=== PATIENT | female | born 1985 | race Caucasian/White ===

== ENCOUNTER 2019-08-20 15:22 | Inpatient (IN) | payer BC, MEDICAID ==
[~2019-08-20] VITALS: Ht 175.3 cm; Wt 104.3 kg
[2019-08-20] MEDS ORDERED: ONDANSETRON HCL 4MG/2ML INJ IV STA (17:33)
[2019-08-20] MEDS ORDERED: SODIUM CHLORIDE 0.9% 1,000 ML IV ONE (17:33)
[2019-08-20] MEDS ORDERED: HYDROMORPHONE HCL/PF 2MG/ML CPJ IV ONE (17:45)
[2019-08-20 18:34] LABS: BASOPHILS % 0.2 % (0.0-2.0); HEMATOCRIT. 35.5 % (36.0-48.0); LYMPHOCYTES % 20.7 % (20.0-50.0); MEAN CORPUSCULAR HEMOGLOBIN 29.6 pg (28.0-32.0); MEAN CORPUSCULAR VOLUME 87.3 fL (81.0-99.0); MONOCYTES % 7.8 % (2.0-8.0); NEUTROPHILS % 71.3 % (40.0-76.0); PLATELET 628 x1000/uL (130-400); RED BLOOD CELL COUNT 4.07 mill/uL (4.2-5.4); RED CELL DISTRIBUTION WIDTH 18.1 % (11.6-14.6)
[2019-08-20 18:35] LABS: CHLORIDE 101 mEq/L (98-107)
[2019-08-20 18:37] LABS: INR 1.1; PROTHROMBIN TIME 11.6 sec (9.6-11.0)
[2019-08-20 18:44] LABS: CREATINE KINASE 58 IU/L (26-192)
[2019-08-20] MEDS ORDERED: DIATR MEGLU/DIATRIZOATE SOLN 30ML ONE (19:55)
[2019-08-20 20:45] LABS: CLARITY URINE CLOUDY (CLEAR); COLOR URINE DARK YELLOW (YELLOW); KETONES URINE NEGATIVE (NEGATIVE); LEUKOCYTE ESTERASE URINE 2+ (NEGATIVE); NITRITE URINE NEGATIVE (NEGATIVE); OCCULT BLOOD URINE 3+ (NEGATIVE); PROTEIN URINE 2+ (NEGATIVE); SPECIFIC GRAVITY URINE 1.022 (1.005-1.030)
[2019-08-20] MEDS ORDERED: IOHEXOL-300 100 ML BOTTLE ONE (22:17)
[2019-08-20 22:41] VITALS: BP 114/81
[2019-08-20 23:05] VITALS: BP 114/81
[2019-08-21] MEDS ORDERED: HYDROMORPHONE HCL/PF 2MG/ML CPJ IV NR
[2019-08-21] MEDS: DEXT 5%/0.45% NACL 1000ML 1,000 ML IV SCH ×2 (02:51→13:30)
[2019-08-21] MEDS ORDERED: HYDR-3280 MT (03:14)
[2019-08-21] MEDS ORDERED: IBUP-2029 PO (03:16)
[2019-08-21] MEDS ORDERED: GABA-531 MT (03:16)
[2019-08-21] MEDS ORDERED: CAPE500T15 PO (03:19)
[2019-08-21] MEDS ORDERED: ONDA4TAB5 MT (03:19)
[2019-08-21 04:00] VITALS: BP 107/67
[2019-08-21] MEDS: ONDANSETRON HCL 4MG/2ML INJ IV PRN ×2 (06:06→21:24)
[2019-08-21] MEDS: HYDROMORPHONE HCL/PF 2MG/ML CPJ IV PRN ×4 (06:07→23:10)
[2019-08-21 08:00] VITALS: BP 126/76
[2019-08-21] MEDS: PANTOPRAZOLE SODIUM 40 MG/VIAL IV SCH (08:49)
[2019-08-21] MEDS: CAPECITABINE 500MG TABLET PO SCH ×2 (08:50→17:33)
[2019-08-21 12:00] VITALS: BP 121/63
[2019-08-21] MEDS: ENOXAPARIN 30MG/0.3ML SYR SUBCUT SCH ×2 (12:09→21:18)
[2019-08-21] MEDS: PIPERACILLIN/TAZOBACTAM 3.375 G in DEXT 5% WATER 100 ML IV SCH ×3 (13:27→23:50)
[2019-08-21] MEDS ORDERED: METOCLOPRAMIDE HCL 10MG/2ML VIAL IV SCH (14:30)
[2019-08-21 16:00] VITALS: BP 104/67
[2019-08-21] MEDS ORDERED: IPRATROPIUM/ALBUTEROL 0.5-3(2.5)MG/3ML NEB HHN PRN (16:00)
[2019-08-21] MEDS ORDERED: LORAZEPAM 2MG/ML CPJ IV PRN (16:00)
[2019-08-21] MEDS: DEXT 5%/0.9% NACL 1,000 ML IV SCH (16:00)
[2019-08-21] MEDS ORDERED: LACTULOSE 20G/30ML UDC PO PRN (16:00)
[2019-08-21] MEDS ORDERED: DIPHENHYDRAMINE 50MG/ML VIAL IV PRN (16:00)
[2019-08-21] MEDS ORDERED: CLONIDINE 0.1MG TABLET PO PRN (16:00)
[2019-08-21] MEDS: FLUCONAZOLE 100MG TABLET PO SCH (17:33)
[2019-08-21 20:00] VITALS: BP 108/65
[2019-08-22] VITALS: BP 117/70
[2019-08-22] MEDS: METOCLOPRAMIDE HCL 10MG/2ML VIAL IV PRN ×2 (02:05→11:27)
[2019-08-22 04:00] VITALS: BP 97/63
[2019-08-22] MEDS: HYDROMORPHONE HCL/PF 2MG/ML CPJ IV PRN ×4 (04:23→20:56)
[2019-08-22] MEDS: PIPERACILLIN/TAZOBACTAM 3.375 G in DEXT 5% WATER 100 ML IV SCH ×3 (06:31→18:05)
[2019-08-22] MEDS: PANTOPRAZOLE SODIUM 40 MG/VIAL IV SCH (09:03)
[2019-08-22] MEDS: CAPECITABINE 500MG TABLET PO SCH ×2 (09:03→18:04)
[2019-08-22] MEDS: ENOXAPARIN 30MG/0.3ML SYR SUBCUT SCH ×2 (09:04→20:55)
[2019-08-22] MEDS: FLUCONAZOLE 100MG TABLET PO SCH (09:04)
[2019-08-22] MEDS: DEXT 5%/0.9% NACL 1,000 ML IV SCH (11:30)
[2019-08-22 12:00] VITALS: BP 117/71
[2019-08-22 12:47] LABS: HCG SCREEN NEGATIVE
[2019-08-22 16:00] VITALS: BP 101/63
[2019-08-22] MEDS: METOCLOPRAMIDE HCL 10MG/2ML VIAL IV SCH (18:05)
[2019-08-22 20:00] VITALS: BP 120/80
[2019-08-22] MEDS ORDERED: ONDANSETRON INJ 8 MG in DEXTROSE 5% WATER 50 ML IV PRN (20:00)
[2019-08-22 20:07] LABS: EOSINOPHILS % 0.5 % (0.0-5.0); HEMATOCRIT. 37.3 % (36.0-48.0); HEMOGLOBIN. 12.6 g/dL (12.0-16.0); LYMPHOCYTES % 32.7 % (20.0-50.0); MEAN CORPUSCULAR HEMOGLOBIN 30.1 pg (28.0-32.0); MEAN CORPUSCULAR VOLUME 88.9 fL (81.0-99.0); MEAN PLATELET VOLUME 6.4 fl (7.4-10.4); MONOCYTES % 6.8 % (2.0-8.0); PLATELET 485 x1000/uL (130-400); RED CELL DISTRIBUTION WIDTH 18.5 % (11.6-14.6)
[2019-08-22 20:14] LABS: CHLORIDE 105 mEq/L (98-107)
[2019-08-22 20:21] LABS: LDL CHOLESTEROL 45 mg/dL (5-100)
[2019-08-22 20:22] LABS: HDL CHOLESTEROL 31 mg/dL (40-59)
[2019-08-22 20:24] LABS: T4 FREE 1.19 ng/dL (0.76-1.46)
[2019-08-23] VITALS: BP 118/68
[2019-08-23] MEDS: PIPERACILLIN/TAZOBACTAM 3.375 G in DEXT 5% WATER 100 ML IV SCH ×2 (00:07→05:00)
[2019-08-23] MEDS: METOCLOPRAMIDE HCL 10MG/2ML VIAL IV SCH ×4 (00:08→17:23)
[2019-08-23] MEDS: HYDROMORPHONE HCL/PF 2MG/ML CPJ IV PRN ×5 (00:56→17:24)
[2019-08-23 04:00] VITALS: BP 121/69
[2019-08-23 06:45] LABS: BASOPHILS % 0.3 % (0.0-2.0); HEMATOCRIT. 34.2 % (36.0-48.0); HEMOGLOBIN. 11.5 g/dL (12.0-16.0); LYMPHOCYTES % 39.1 % (20.0-50.0); MEAN CORPUSCULAR HEMOGLOBIN 29.7 pg (28.0-32.0); MEAN CORPUSCULAR VOLUME 88.1 fL (81.0-99.0); MEAN PLATELET VOLUME 6.1 fl (7.4-10.4); MONOCYTES % 8.7 % (2.0-8.0); NEUTROPHILS % 49.9 % (40.0-76.0); PLATELET 393 x1000/uL (130-400); RED BLOOD CELL COUNT 3.88 mill/uL (4.2-5.4); RED CELL DISTRIBUTION WIDTH 17.7 % (11.6-14.6)
[2019-08-23 06:52] LABS: CHLORIDE 107 mEq/L (98-107)
[2019-08-23] MEDS ORDERED: FAMOTIDINE 20MG/2ML VIAL IV SCH (09:00)
[2019-08-23] MEDS: FLUCONAZOLE 100MG TABLET PO SCH (09:15)
[2019-08-23] MEDS: CAPECITABINE 500MG TABLET PO SCH ×2 (09:16→17:23)
[2019-08-23] MEDS: ENOXAPARIN 30MG/0.3ML SYR SUBCUT SCH (09:16)
[2019-08-23] MEDS: GABAPENTIN 300MG CAPSULE PO SCH ×2 (11:21→17:23)
[2019-08-23] MEDS ORDERED: POTASSIUM CHLORIDE 20MEQ TABLET SR PO SCH (11:30)
[2019-08-23] MEDS ORDERED: HYDROCODONE/ACETAMINOPHEN 10/325MG TABLET PO PRN (13:00)
[2019-08-23] MEDS ORDERED: HYDROCODONE/ACETAMINOPHEN 10/325MG TABLET PO NR (13:30)
[2019-08-23 16:38] VITALS: BP 122/75
[2019-08-23] MEDS ORDERED: MORP15TA54 MT (17:01)
[2019-08-23] MEDS ORDERED: METO10TA3 MT (17:01)
[2019-08-23] MEDS ORDERED: HYDR-4009 MT (17:01)
[2019-08-23 17:24] VITALS: BP 122/75
== END 2019-08-23 18:20 | disposition home or self-care (01) | DRG 689 ==
LOC: ER 15:22 → EDBEDREQ 17:36 → MICUSO 19:03 → EDBEDREQ 19:04 → EDBEDREQTM 19:04 → EDBEDREQSVC 19:04 → 6EST 23:26
PROVIDERS: ADMIT Internal Medicine; ATTEND Internal Medicine
DX: N39.0 Urinary tract infection, site not specified (principal); I50.33 Acute on chronic diastolic (congestive) heart failure; E87.2 Acidosis; E87.1 Hypo-osmolality and hyponatremia; C19 Malignant neoplasm of rectosigmoid junction; E86.0 Dehydration; K76.0 Fatty (change of) liver, not elsewhere classified; Z51.11 Encounter for antineoplastic chemotherapy; Z85.038 Personal history of other malignant neoplasm of large intestine; Z93.3 Colostomy status; Z90.49 Acquired absence of other specified parts of digestive tract; Z86.59 Personal history of other mental and behavioral disorders; Z79.899 Other long term (current) drug therapy
CPT/HCPCS: 36415; 71045; 74177; 80048; 80053; 80061; 81003; 82270; 82550; 83605; 83615; 83880; 84145; 84439; 84443; 84484; 84703; 85025; 85379; 86850; 86900; 87015; 87045; 87427; 87449; 87493; 89055; 93005; 93306; 93970; 97110; 97116; 97162; 97535; 99285; C9113; J1170; J1650; J2405; J2543; J2765; J3490; J7030; J7042; J7060; Q9963; Q9967

== ENCOUNTER → 2019-11-07 | Outpatient (CLI) | payer BC ==
[~2019-11-07] MED LIST: BARIUM SULFATE 450ML ORAL SUSP ONE; CAPE500T15 PO; GABA-531 MT; HYDR-3280 MT; HYDR-4009 MT; IBUP-2029 PO; IOHEXOL-300 100 ML BOTTLE ONE; METO10TA3 MT; MORP15TA54 MT; ONDA4TAB5 MT
== END | disposition home or self-care (01) ==
LOC: CT 08:42
PROVIDERS: ATTEND Internal Medicine Hematology & Oncology
DX: C18.6 Malignant neoplasm of descending colon (principal); R19.00 Intra-abdominal and pelvic swelling, mass and lump, unspecified site
CPT/HCPCS: 71260; 74177; Q9967